=== PATIENT | male | born 1975 | race African-American/Black ===

== ENCOUNTER 2019-06-20 11:41 | Inpatient (IN) | payer OTHER ==
[2019-06-20 13:30] VITALS: BMI 29.7
--- NOTE | 2019-06-20 14:12 | HP ---
CIWA Score Nausea/Vomitin-No Nausea/No Vomiting Muscle Tremors: None Anxiety: 1-Mildly Anxious Agitation: 1-Slight > Activity Paroxysmal Sweats: No Perspiration Orientation: 0-Oriented Tacttile Disturbances: 0-None Auditory Disturbances: 0-None Visual Disturbances: 0-None Headache: 1-Very Mild CIWA-Ar Total Score: 3 - Admission Criteria OASAS Guidelines: Admission for Medically Managed Detox: Requires at least one of the followin. CIWA greater than 12 2. Seizures within the past 24 hours 3. Delirium tremens within the past 24 hours 4. Hallucinations within the past 24 hours 5. Acute intervention needed for co occurring medical disorder 6. Acute intervention needed for co occurring psychiatric disorder 7. Severe withdrawal that cannot be handled at a lower level of care (continued vomiting, continued diarrhea, abnormal vital signs) requiring intravenous medication and/or fluids 8. Admitting History and Physical - Admission Chief Complaint: i need help to come in for rehab from pcp,alcohol,also on pbobation. and fail out patient program History of Present Illness: this 44 years old male attnding outpatient program at [place] for alcohol disorder,pcp abuses and on probation for rehab last treatment 1999 History Source: Patient Limitations to Obtaining History: No Limitations - Past Medical History Cardiovascular: Yes: Hyperlipdemia Psych: Yes: Depression, Other (insomnia) - Past Surgical History Past Surgical History: Yes: Hernia Repair (right inguinal hernia repair in 2018) - Smoking History Smoking history: Current some day smoker Have you smoked in the past 12 months: Yes Aproximately how many cigarettes per day: 20 - Alcohol/Substance Use Hx Alcohol Use: Yes - Social History Usual Living Arrangement: Yes: With Significant Other ADL: Support Services Occupation: unemployed History of Recent Travel: No Admission ROS S - [facility] Chief Complaint: i need help to come in for rehab from alcohol and pcp Allergies/Adverse Reactions: Allergies Allergy/AdvReac Type Severity Reaction Status Date / Time No Known Allergies Allergy Verified 06/20/19 13:12 History of Present Illness: this 44 years old male with alcohol disorder and pcp abused,attending out patient program in [place], but failed, on probation for 2 years,need rehab in the control environment setting, denied seizure but had syncope nicotine dependence 1 pack/day depression insomnia hypercholesterolemia longest sobriety 4 months Exam Limitations: No Limitations - Ebola screening Have you traveled outside of the country in the last 21 days: No Have you had contact with anyone from an Ebola affected area: No Do you have a fever: No - Review of Systems Constitutional: No Symptoms Reported EENT: reports: No Symptoms Reported Respiratory: reports: No Symptoms reported Cardiac: reports: No Symptoms Reported GI: reports: No Symptoms Reported : reports: No Symptoms Reported Musculoskeletal: reports: No Symptoms Reported Integumentary: reports: No Symptoms Reported Neuro: reports: No Symptoms reported Endocrine: reports: No Symptoms Reported Hematology: reports: No Symptoms Reported Psychiatric: reports: No Sypmtoms Reported, Judgement Intact, Mood/Affect Appropiate, Orientated x3, Agitated, Anxious, Depressed, other (insomnia) Patient History - Patient Medical History Hx Anemia: No Hx Asthma: Yes (on albuterol inhaler) Hx Chronic Obstructive Pulmonary Disease (COPD): No Hx Cancer: No Hx Cardiac Disorders: No Hx Congestive Heart Failure: No Hx Hypertension: No Hx Hypercholesterolemia: Yes (on compliance) Hx Pacemaker: No HX Cerebrovascular Accident: No Hx Seizures: No Hx Dementia: No Hx Diabetes: No Hx Gastrointestinal Disorders: No Hx Liver Disease: No Hx Genitourinary Disorders: No Hx Renal Disease (ESRD): No Hx Thyroid Disease: No Hx Human Immunodeficiency Virus (HIV): No Hx Hepatitis C: No Hx Depression: Yes Hx Suicide Attempt: No Hx Bipolar Disorder: No Hx Schizophrenia: No Other Medical History: no suicidal,no homicidal - Patient Surgical History Past Surgical History: No Hx Neurologic Surgery: No Hx Cataract Extraction: No Hx Cardiac Surgery: No Hx Lung Surgery: No Hx Breast Surgery: No Hx Breast Biopsy: No Hx Abdominal Surgery: Yes (right inguinal hernia in 2018) Hx Appendectomy: No Hx Cholecystectomy: No Hx Genitourinary Surgery: No Hx Section: No Hx Orthopedic Surgery: No Hx Hysterectomy: No Anesthesia Reaction: No - PPD History Previous Implant?: Yes Documented Results: Negative w/o proof Implanted On Prior R Admission?: Yes PPD to be Administered?: Yes - Smoking Cessation Smoking history: Current some day smoker Have you smoked in the past 12 months: Yes Aproximately how many cigarettes per day: 20 Hx Chewing Tobacco Use: No Initiated information on smoking cessation: Yes 'Breaking Loose' booklet given: 06/20/19 - Substance & Tx. History Hx Alcohol Use: Yes Hx Substance Use: Yes Substance Use Type: Alcohol Hx Substance Use Treatment: Yes (1999) - Substances abused Alcohol Substance route: Oral Frequency: Daily Amount used: 1 beer 24 ozs Age of first use: 20 Date of last use: 06/19/19 PCP Substance route: Smoking Frequency: 1-3 times last 30 days Amount used: 2 bags Age of first use: 23 Date of last use: 06/17/19 Admission Physical Exam [facility] - Vital Signs Vital Signs: Vital Signs - 24 hr 06/20/19 13:11 Temperature 97.9 F Pulse Rate 67 Respiratory 18 Rate Blood Pressure 121/78 - Physical General Appearance: Yes: Within Normal Limits HEENTM: Yes: Within Normal Limits, Hearing grossly Normal, Normal ENT Inspection , LETY Respiratory: Yes: Lungs Clear, Other (history of asthma) Neck: Yes: Within Normal Limits, Trachea in good position, Thyroid enlarged Breast: Yes: Within Normal Limits Cardiology: Yes: Within Normal Limits, Regular Rhythm, Regular Rate, S1, S2 Abdominal: Yes: Normal Bowel Sounds, Non Tender, Flat, Soft, Surgical Scar Genitourinary: Yes: Within Normal Limits Back: Yes: Within Normal Limits Musculoskeletal: Yes: Within Normal Limits Extremities: Yes: Within Normal Limits 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, Alert, Motor Strength 5/5 Integumentary: Yes: Within Normal Limits Lymphatic: Yes: Within Normal Limits - Diagnostic (1) Alcohol use disorder Current Visit: Yes Status: Acute (2) PCP abuse Current Visit: Yes Status: Acute (3) Hypercholesterolemia Current Visit: Yes Status: Acute (4) Nicotine dependence Current Visit: Yes Status: Acute (5) Depression Current Visit: Yes Status: Acute Cleared for Admission [facility] - Detox or Rehab Claeared for Rehab Admission: Yes Breathalyzer - Breathalyzer Breathalyzer: 0 Urine Drug Screen - Test Device Lot number: [id number] Expiration date: 01/05/21 - Control Is test valid?: Yes - Results Drug screen NEGATIVE: Yes Inpatient Rehab Admission - Rehab Decision to Admit Inpatient rehab admission?: Yes - Initial Determination Are CD services needed?: Yes Free of communicable disease: Yes Not in need of hospitalization: Yes - Rehab Admission Criteria Previous failed treatment: Yes Poor recovery environment: Yes Comorbidities: Yes Lacks judgement: No Patient is meeting Inpatient Rehab admission criteria:: Yes
[2019-06-20] MEDS ORDERED: MENTHOL/PHENOL 1 EACH UD MM PRN (14:34)
[2019-06-20] MEDS ORDERED: hydrOXYzine PAMOATE 50 MG CAPSULE (FP) PO PRN (14:34)
[2019-06-20] MEDS ORDERED: MAGNESIUM HYDROX 2400MG/30ML ORAL SUSPENSION 30 ML CUP PO PRN (14:34)
[2019-06-20] MEDS ORDERED: ACETAMINOPHEN 325 MG TABLET (FP) PO PRN (14:34)
[2019-06-20] MEDS ORDERED: P-EPHED 60MG/TRIPROLIDI 2.5MG TABLET PO PRN (14:34)
[2019-06-20] MEDS ORDERED: guaiFENesin 200 MG/10 ML 10 ML UNIT-DOSE CUPS PO PRN (14:34)
[2019-06-20] MEDS ORDERED: MAGNESIUM CITRATE 300 ML BOTTLE PO PRN (14:34)
[2019-06-20] MEDS ORDERED: LOPERAMIDE HCL 2 MG CAPSULE PO PRN (14:34)
[2019-06-20] MEDS ORDERED: MAG HYDROX/AL HYDROX/SIMETH 30 ML UNIT-DOSE CUP PO PRN (14:34)
[2019-06-20] MEDS ORDERED: IBUPROFEN 400 MG TABLET (FP) PO PRN (14:34)
[2019-06-20] MEDS ORDERED: NICOTINE POLACRILEX 2 MG GUM BUC PRN (14:34)
[2019-06-20] MEDS ORDERED: ALBUTEROL SO4 HFA INHALER IH PRN (14:37)
--- NOTE | 2019-06-20 14:47 | PN ---
[facility] Progress Note Note: [facility] called,spoke with Pharmacist,patient is not on medication
[2019-06-20] MEDS ORDERED: ASPIRIN 81 MG CHEWABLE TABLETS PO ONE (15:21)
--- NOTE | 2019-06-20 15:21 | EKG ---
Test Reason : Blood Pressure : / mmHG Vent. Rate : 058 BPM Atrial Rate : 058 BPM P-R Int : 162 ms QRS Dur : 106 ms QT Int : 440 ms P-R-T Axes : 036 -32 -49 degrees QTc Int : 431 ms SINUS BRADYCARDIA LEFT AXIS DEVIATION ABNORMAL ECG WHEN COMPARED WITH ECG OF 08-SEP-2010 12:13, LIKELY NO SIGNIFICANT CHANGES Confirmed by JOSR ADAMES MD ([id number]) on 06/20/2019 3:20:46 PM Referred By: Confirmed By:JOSR ADAMES MD
[2019-06-20 16:52] LABS: HEMATOCRIT 41.1 % (35.4-49); HEMOGLOBIN 13.2 GM/dL (11.7-16.9); MCH 23.3 pg (25.7-33.7); MCHC 32.1 g/dl (32.0-35.9); MEAN CELL VOLUME 72.7 fl (80-96); MEAN PLT VOLUME 9.7 fl (7.5-11.1); PLATELET COUNT 174 K/MM3 (134-434); RBC 5.65 M/mm3 (4.00-5.60); RDW 15.2 % (11.9-15.9); WHITE BLOOD COUNT 4.9 K/mm3 (4.0-10.0)
[2019-06-20 17:00] LABS: BILIRUBIN,TOTAL 0.4 mg/dL (0.2-1); BLOOD UREA NITROGEN 12.5 mg/dL (7-18); CALCIUM 8.4 mg/dL (8.5-10.1); POTASSIUM 3.8 mmol/L (3.5-5.1); TOT PROT 7.1 g/dl (6.4-8.2)
[2019-06-20] MEDS: MELATONIN 5 MG TABLETS PO PRN (21:32)
[2019-06-20] MEDS: THIAMINE HCL 100 MG TABLET (FP) PO SCH (21:32)
[2019-06-21] MEDS: PRENATAL VITAMINS W/ FOLIC ACID TABLET (FP) PO SCH (10:02)
[2019-06-21] MEDS: ASPIRIN 81 MG CHEWABLE TABLETS PO SCH (10:02)
[2019-06-21 10:18] LABS: PH,URINE 5.5 (5.0-8.0); URINE APPEARANCE CLEAR; URINE BILIRUBIN NEGATIVE (NEGATIVE); URINE COLOR YELLOW; URINE GLUCOSE (UA) NEGATIVE (NEGATIVE); URINE KETONE NEGATIVE (NEGATIVE); URINE LEUK ESTERASE NEGATIVE (NEGATIVE); URINE NITRITE NEGATIVE (NEGATIVE); URINE PROTEIN NEGATIVE (NEGATIVE); URINE UROBILINOGEN 0.2 mg/dL (0.2-1.0)
--- NOTE | 2019-06-21 11:08 | PN ---
[facility] Progress Note Note: Pt was admitted yesterday for alcohol and PCP use. Says he is doing fine today. Here due to program and probation requirements. Would like to stay for 2-3 weeks. PT has no complaints.
[2019-06-21] MEDS ORDERED: FLU VACCINE QUAD 60 MCG/0.5 ML (MDV 19-20) IM ONE (12:00)
[2019-06-21] MEDS: MELATONIN 5 MG TABLETS PO PRN (21:11)
[2019-06-21] MEDS: THIAMINE HCL 100 MG TABLET (FP) PO SCH (21:11)
[2019-06-22] MEDS: PRENATAL VITAMINS W/ FOLIC ACID TABLET (FP) PO SCH (10:10)
[2019-06-22] MEDS: ASPIRIN 81 MG CHEWABLE TABLETS PO SCH (10:10)
[2019-06-22] MEDS: THIAMINE HCL 100 MG TABLET (FP) PO SCH (21:23)
[2019-06-22] MEDS: MELATONIN 5 MG TABLETS PO PRN (21:23)
[2019-06-23] MEDS: PRENATAL VITAMINS W/ FOLIC ACID TABLET (FP) PO SCH (10:12)
[2019-06-23] MEDS: ASPIRIN 81 MG CHEWABLE TABLETS PO SCH (10:12)
[2019-06-23] MEDS: MELATONIN 5 MG TABLETS PO PRN (21:15)
[2019-06-23] MEDS: THIAMINE HCL 100 MG TABLET (FP) PO SCH (21:15)
[2019-06-24] MEDS: ASPIRIN 81 MG CHEWABLE TABLETS PO SCH (09:53)
[2019-06-24] MEDS: PRENATAL VITAMINS W/ FOLIC ACID TABLET (FP) PO SCH (09:53)
[2019-06-24] MEDS: MELATONIN 5 MG TABLETS PO PRN (21:18)
[2019-06-24] MEDS: THIAMINE HCL 100 MG TABLET (FP) PO SCH (21:18)
[2019-06-25] MEDS: PRENATAL VITAMINS W/ FOLIC ACID TABLET (FP) PO SCH (09:55)
[2019-06-25] MEDS: ASPIRIN 81 MG CHEWABLE TABLETS PO SCH (09:56)
[2019-06-25] MEDS: THIAMINE HCL 100 MG TABLET (FP) PO SCH (21:18)
[2019-06-25] MEDS: MELATONIN 5 MG TABLETS PO PRN (21:18)
[2019-06-26] MEDS: ASPIRIN 81 MG CHEWABLE TABLETS PO SCH (10:03)
[2019-06-26] MEDS: PRENATAL VITAMINS W/ FOLIC ACID TABLET (FP) PO SCH (10:03)
--- NOTE | 2019-06-26 10:38 | CONSULT ---
[facility] Psychiatric Consult - Data Date of interview: 06/26/19 Admission source: [facility] Identifying data: Patient is a 44 year old male male, father of five, unemployed, domiciled, and is supported by [facility]. This is one of multiple admissions for patient. Patient admitted to for alcohol and PCP dependence. Substance Abuse History: Smoking Cessation. Smoking history: Current some day smoker. Have you smoked in the past 12 months: Yes. Aproximately how many cigarettes per day: 20. Hx Chewing Tobacco Use: No. Initiated information on smoking cessation: Yes. 'Breaking Loose' booklet given: 06/20/19. - Substance & Tx. History. Hx Alcohol Use: Yes. Hx Substance Use: Yes. Substance Use Type : Alcohol. Hx Substance Use Treatment: Yes (1999). - Substances abused. Alcohol. Substance route: Oral. Frequency: Daily. Amount used: 1 beer 24 ozs. Age of first use: 20. Date of last use: 06/19/19. PCP. Substance route: Smoking. Frequency: 1-3 times last 30 days. Amount used: 2 bags. Age of first use: 23. Date of last use: 06/17/19 Medical History: Asthma, Hypercholesterolemia Psychiatric History: Patient's first psychiatric contact was in 2005 after Mr. Sandy saw a psychiatrist in an outpatient setting due to feeling depressed and having several stressors in his life. No medications were prescribed but psychotherapy was provided. Patient reports history of two psychiatric hospitalizations approximately 7-8 years ago at [facility] after reporting SI and HI towards an acquaintance, and [facility] for suicidal ideation. Patient unable to recall medications prescribed. Unknown diagnosis. States that he is currently provided with outpatient psychiatric care at the [facility] and is prescribed seroquel 100mg. Patient denies history of suicide attempt. He denies history of auditory/visual hallucinations. At present patient reports difficulty sleeping. Physical/Sexual Abuse/Trauma History: denies. Mental Status Exam - Mental Status Exam Alert and Oriented to: Time, Place, Person Cognitive Function: Good Patient Appearance: Well Groomed Mood: Sad Affect: Appropriate Patient Behavior: Appropriate, Cooperative Speech Pattern: Appropriate Voice Loudness: Normal Thought Process: Goal Oriented Thought Disorder: Not Present Hallucinations: Denies Suicidal Ideation: Denies Homicidal Ideation: Denies Insight/Judgement: Poor Sleep: Poorly Appetite: Fair Muscle strength/Tone: Normal Gait/Station: Normal Psychiatric Findings - Problem List ([place] 1, 2,3) (1) Substance induced mood disorder Current Visit: Yes Status: Acute (2) Alcohol use disorder Current Visit: Yes Status: Chronic (3) Nicotine dependence Current Visit: Yes Status: Acute (4) PCP abuse Current Visit: Yes Status: Acute (5) Substance-induced sleep disorder Current Visit: Yes Status: Acute (6) Mood disorder Current Visit: No Status: Suspected - Initial Treatment Plan Initial Treatment Plan: Psychoeducation provided. Rehab in progress. Will order Seroquel 100mg HS. Benefits and side effects discussed. Verbal consent given.
[2019-06-26] MEDS: QUEtiapine FUMARATE 100 MG TABLET (FP) PO SCH (21:37)
[2019-06-26] MEDS: THIAMINE HCL 100 MG TABLET (FP) PO SCH (21:37)
[2019-06-27] MEDS: GABAPENTIN 300 MG CAPSULE PO SCH ×2 (09:42→16:39)
[2019-06-27] MEDS: ASPIRIN 81 MG CHEWABLE TABLETS PO SCH (10:10)
[2019-06-27] MEDS: metoPROLOL SUCCINATE 25 MG TAB.SR.24H (FP) PO SCH (10:10)
[2019-06-27] MEDS: PRENATAL VITAMINS W/ FOLIC ACID TABLET (FP) PO SCH (10:42)
[2019-06-27] MEDS: MELATONIN 5 MG TABLETS PO PRN (21:14)
[2019-06-27] MEDS: QUEtiapine FUMARATE 100 MG TABLET (FP) PO SCH (21:14)
[2019-06-27] MEDS: THIAMINE HCL 100 MG TABLET (FP) PO SCH (21:14)
[2019-06-28] MEDS: GABAPENTIN 300 MG CAPSULE PO SCH ×2 (02:06→09:58)
[2019-06-28] MEDS: PRENATAL VITAMINS W/ FOLIC ACID TABLET (FP) PO SCH (09:58)
[2019-06-28] MEDS: metoPROLOL SUCCINATE 25 MG TAB.SR.24H (FP) PO SCH (09:58)
[2019-06-28] MEDS: ASPIRIN 81 MG CHEWABLE TABLETS PO SCH (09:58)
[2019-06-28] MEDS: MELATONIN 5 MG TABLETS PO PRN (21:26)
[2019-06-28] MEDS: THIAMINE HCL 100 MG TABLET (FP) PO SCH (21:26)
[2019-06-28] MEDS: QUEtiapine FUMARATE 100 MG TABLET (FP) PO SCH (21:26)
[2019-06-29] MEDS: PRENATAL VITAMINS W/ FOLIC ACID TABLET (FP) PO SCH (09:42)
[2019-06-29] MEDS: GABAPENTIN 300 MG CAPSULE PO SCH ×2 (09:42→21:25)
[2019-06-29] MEDS: ASPIRIN 81 MG CHEWABLE TABLETS PO SCH (09:42)
[2019-06-29] MEDS: metoPROLOL SUCCINATE 25 MG TAB.SR.24H (FP) PO SCH (10:31)
[2019-06-29] MEDS: THIAMINE HCL 100 MG TABLET (FP) PO SCH (21:23)
[2019-06-29] MEDS: MELATONIN 5 MG TABLETS PO PRN (21:23)
[2019-06-29] MEDS: QUEtiapine FUMARATE 100 MG TABLET (FP) PO SCH (21:23)
--- NOTE | 2019-06-30 09:12 | PN ---
[facility] Progress Note (SOAP) Subjective: Patient c/o abd pain and diarrhea. States he has been eating a lot of food, beyond fullness, and the diarrhea started today. Was given maalox with minimal effect. Reports frequent watery stool. Hx of gastritis, denies any recent hospitalizations or abx use. Objective: 06/30/19 09:08 Vital Signs Period Temp Pulse Resp BP Sys/Celis Pulse Ox Last 24 Hr 98.9 F 91-101 18-20 115-119/70-89 P/E: General: no apparent distress HEENTM: normocephalic, PERRLA Lungs: clear Heart: s1 s2 ABD: +BS, non-tender, distended. Assessment: Diarrhea 06/30/19 09:09 Plan: Started on Pepto- Bismol and daily Protonix. Discussed dietary habits, eating slower, waiting for sensation of fullness to determine if he needs to eat more food.
[2019-06-30] MEDS: PANTOPRAZOLE 40 MG TABLET PO SCH (10:16)
[2019-06-30] MEDS: GABAPENTIN 300 MG CAPSULE PO SCH ×2 (10:25→21:48)
[2019-06-30] MEDS: metoPROLOL SUCCINATE 25 MG TAB.SR.24H (FP) PO SCH (10:25)
[2019-06-30] MEDS: ASPIRIN 81 MG CHEWABLE TABLETS PO SCH (10:25)
[2019-06-30] MEDS: PRENATAL VITAMINS W/ FOLIC ACID TABLET (FP) PO SCH (10:25)
[2019-06-30] MEDS: BISMUTH SUBSALICYLATE 524 MG/30 ML UD PO PRN ×2 (10:28→21:49)
[2019-06-30] MEDS: THIAMINE HCL 100 MG TABLET (FP) PO SCH (21:48)
[2019-06-30] MEDS: QUEtiapine FUMARATE 100 MG TABLET (FP) PO SCH (21:48)
[2019-06-30] MEDS: MELATONIN 5 MG TABLETS PO PRN (21:49)
[2019-07-01] MEDS: ASPIRIN 81 MG CHEWABLE TABLETS PO SCH (10:11)
[2019-07-01] MEDS: PANTOPRAZOLE 40 MG TABLET PO SCH (10:11)
[2019-07-01] MEDS: BISMUTH SUBSALICYLATE 524 MG/30 ML UD PO PRN ×2 (10:11→21:31)
[2019-07-01] MEDS: GABAPENTIN 300 MG CAPSULE PO SCH ×2 (10:11→21:29)
[2019-07-01] MEDS: PRENATAL VITAMINS W/ FOLIC ACID TABLET (FP) PO SCH (10:11)
[2019-07-01] MEDS: metoPROLOL SUCCINATE 25 MG TAB.SR.24H (FP) PO SCH (10:12)
[2019-07-01] MEDS: THIAMINE HCL 100 MG TABLET (FP) PO SCH (21:29)
[2019-07-01] MEDS: MELATONIN 5 MG TABLETS PO PRN (21:30)
[2019-07-01] MEDS: QUEtiapine FUMARATE 100 MG TABLET (FP) PO SCH (21:30)
[2019-07-02] MEDS: PRENATAL VITAMINS W/ FOLIC ACID TABLET (FP) PO SCH (09:48)
[2019-07-02] MEDS: ASPIRIN 81 MG CHEWABLE TABLETS PO SCH (09:48)
[2019-07-02] MEDS: GABAPENTIN 300 MG CAPSULE PO SCH ×2 (09:48→21:17)
[2019-07-02] MEDS: metoPROLOL SUCCINATE 25 MG TAB.SR.24H (FP) PO SCH (09:48)
[2019-07-02] MEDS: PANTOPRAZOLE 40 MG TABLET PO SCH (09:48)
[2019-07-02] MEDS: BISMUTH SUBSALICYLATE 524 MG/30 ML UD PO PRN (09:50)
[2019-07-02] MEDS: THIAMINE HCL 100 MG TABLET (FP) PO SCH (21:17)
[2019-07-02] MEDS: MELATONIN 5 MG TABLETS PO PRN (21:17)
[2019-07-02] MEDS: QUEtiapine FUMARATE 100 MG TABLET (FP) PO SCH (21:17)
[2019-07-03] MEDS: ASPIRIN 81 MG CHEWABLE TABLETS PO SCH (09:46)
[2019-07-03] MEDS: metoPROLOL SUCCINATE 25 MG TAB.SR.24H (FP) PO SCH (09:46)
[2019-07-03] MEDS: PRENATAL VITAMINS W/ FOLIC ACID TABLET (FP) PO SCH (09:46)
[2019-07-03] MEDS: PANTOPRAZOLE 40 MG TABLET PO SCH (09:46)
[2019-07-03] MEDS: GABAPENTIN 300 MG CAPSULE PO SCH ×2 (09:46→21:25)
[2019-07-03] MEDS: BISMUTH SUBSALICYLATE 524 MG/30 ML UD PO PRN (09:47)
[2019-07-03] MEDS: THIAMINE HCL 100 MG TABLET (FP) PO SCH (21:25)
[2019-07-03] MEDS: MELATONIN 5 MG TABLETS PO PRN (21:25)
[2019-07-03] MEDS: QUEtiapine FUMARATE 100 MG TABLET (FP) PO SCH (21:25)
[2019-07-04] MEDS: GABAPENTIN 300 MG CAPSULE PO SCH ×2 (09:53→21:16)
[2019-07-04] MEDS: PRENATAL VITAMINS W/ FOLIC ACID TABLET (FP) PO SCH (09:53)
[2019-07-04] MEDS: metoPROLOL SUCCINATE 25 MG TAB.SR.24H (FP) PO SCH (09:53)
[2019-07-04] MEDS: PANTOPRAZOLE 40 MG TABLET PO SCH (09:53)
[2019-07-04] MEDS: ASPIRIN 81 MG CHEWABLE TABLETS PO SCH (09:53)
[2019-07-04] MEDS: BISMUTH SUBSALICYLATE 524 MG/30 ML UD PO PRN ×2 (09:54→21:17)
[2019-07-04] MEDS: THIAMINE HCL 100 MG TABLET (FP) PO SCH (21:16)
[2019-07-04] MEDS: QUEtiapine FUMARATE 100 MG TABLET (FP) PO SCH (21:16)
[2019-07-04] MEDS: MELATONIN 5 MG TABLETS PO PRN (21:17)
[2019-07-05] MEDS: GABAPENTIN 300 MG CAPSULE PO SCH ×2 (09:33→21:13)
[2019-07-05] MEDS: ASPIRIN 81 MG CHEWABLE TABLETS PO SCH (09:33)
[2019-07-05] MEDS: PANTOPRAZOLE 40 MG TABLET PO SCH (09:33)
[2019-07-05] MEDS: metoPROLOL SUCCINATE 25 MG TAB.SR.24H (FP) PO SCH (09:33)
[2019-07-05] MEDS: PRENATAL VITAMINS W/ FOLIC ACID TABLET (FP) PO SCH (09:34)
--- NOTE | 2019-07-05 09:45 | PN ---
[facility] Progress Note (SOAP) Subjective: Patient c/o left sided pain that does not radiate to the back, arm or neck. Also reports feeling congested when he breathes. Reports that he has been told by his PCP that he has "clogged arteries," but he did not report this on admission. He states that he had the same feeling yesterday and it was relieved after taking his morning medications (ASA, protonix) Was previously seen for abdominal discomfort related to overeating, and treated with protonix, which relieved the symptoms. He reports now that he had 3 bowls of cereal and that he is lying down right after his evening meal. He also reports that he has been doing push-ups; previously sedentary. EKG upon admission indicated bradycardia and no significant changes from previous EKG. Objective: BP- 127/81, RR-18, Pulse-78 @ time of complaint. Pulse Oxygen-98% 07/05/19 09:45 Vital Signs Period Temp Pulse Resp BP Sys/Celis Pulse Ox Last 24 Hr 97.9 F 73 18-18 102/66 P/E: General: no apparent distress Lungs: clear, respirations easy and unlabored Heart: s1, s2 audible, regular ABD: +BS Neuro: CN 2-12 intact. 07/05/19 09:51 Assessment: unspecified chest pain 07/05/19 09:48 Plan: EKG ordered-shows left axis deviation (unchanged from previous EKG) NSR, ST wave abnormalities that may indicate ischemia (consistent with "clogged arteries "). AM meds given Instructed to stop push-ups, sit up after eating, and reduce food intake. Continue to monitor.
--- NOTE | 2019-07-05 15:14 | EKG ---
Test Reason : Blood Pressure : / mmHG Vent. Rate : 077 BPM Atrial Rate : 077 BPM P-R Int : 166 ms QRS Dur : 104 ms QT Int : 384 ms P-R-T Axes : 053 -33 -44 degrees QTc Int : 434 ms NORMAL SINUS RHYTHM LEFT AXIS DEVIATION ABNORMAL ECG WHEN COMPARED WITH ECG OF 20-JUN-2019 14:56, T WAVE INVERSION NO LONGER EVIDENT IN ANTERIOR LEADS Confirmed by Bigg Pulido MD ([id number]) on 07/05/2019 3:14:16 PM Referred By: Confirmed By:Bigg Pulido MD
[2019-07-05] MEDS: THIAMINE HCL 100 MG TABLET (FP) PO SCH (21:13)
[2019-07-05] MEDS: QUEtiapine FUMARATE 100 MG TABLET (FP) PO SCH (21:13)
[2019-07-05] MEDS: MELATONIN 5 MG TABLETS PO PRN (21:13)
[2019-07-06] MEDS: ASPIRIN 81 MG CHEWABLE TABLETS PO SCH (10:08)
[2019-07-06] MEDS: metoPROLOL SUCCINATE 25 MG TAB.SR.24H (FP) PO SCH (10:08)
[2019-07-06] MEDS: GABAPENTIN 300 MG CAPSULE PO SCH ×2 (10:08→21:28)
[2019-07-06] MEDS: PANTOPRAZOLE 40 MG TABLET PO SCH (10:08)
[2019-07-06] MEDS: PRENATAL VITAMINS W/ FOLIC ACID TABLET (FP) PO SCH (10:08)
--- NOTE | 2019-07-06 11:26 | PN ---
[facility] Progress Note Note: Patient is scheduled for discharge tomorrow. Script for 30 days supply of Seroquel 100 mg/hs will be electronically transmitted to [facility] at [address] [place] [address]
--- NOTE | 2019-07-06 15:15 | DS ---
[facility] Rehab Discharge Summary - [facility] Rehab Discharge Summary Admission Date: 06/20/19 Discharge Date: 07/06/19 - History Present History: PCP dependence Pertinent Past History: this 44 years old male with alcohol disorder and pcp abused,attending out patient program in [place], but failed, on probation for 2 years,need rehab in the control environment setting, denied seizure but had syncope nicotine dependence 1 pack/day depression insomnia hypercholesterolemia longest sobriety 4 months - Discharge Physical Exam Vital Signs: Vital Signs Temperature 97.5 F L 07/06/19 07:52 Pulse Rate 75 07/06/19 09:30 Respiratory Rate 18 07/06/19 09:30 Blood Pressure 120/67 07/06/19 09:30 O2 Sat by Pulse Oximetry (%) Pertinent Admission Physical Exam Findings: Physical General Appearance: No apparent distress HEENTM: LETY Respiratory: Lungs Clear Neck: Trachea in good position, Thyroid enlarged Cardiology: S1, S2 Abdominal: +Bowel Sounds, Non Tender, Flat, Soft, Surgical Scar Musculoskeletal: Full weight bearing, full ROM, steady gait 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 Patient will return to [facility] for aftercare) Hospital Course: Patient attended groups, had 1:1 with his counselor, was seen by the psychiatric service. He was treated for diarrhea and substernal pain while in rehab. - Medication Discharge Medications: Ambulatory Orders Fluticasone/Salmeterol [Advair Hfa 115-21 Mcg Inhaler] 1 inh PO PRN PRN Aspirin [ASA -] 81 mg PO DAILY 06/20/19 Gabapentin [Neurontin -] 300 mg PO Q8H 06/25/19 Metoprolol Succinate [Toprol Xl] 25 mg PO DAILY 06/25/19 Quetiapine Fumarate [Seroquel -] 100 mg PO HS #30 tablet 07/06/19 - Medication-Assisted Treatment (MAT) Medication-Assisted Treatment (MAT): No - Discharge Instructions Diet, activity, other medical instructions: Diet: as tolerated Activity: as tolerated Other medical instructions: Please follow up with aftercare referral. - Diagnosis (1) PCP abuse Current Visit: Yes Status: Chronic (2) Alcohol use disorder Current Visit: Yes Status: Chronic - Follow-up Referral Minutes to complete discharge: 20 - AMA Did Patient Leave Against Medical Advice: No Additional Comments: Patient did not need medications prescribed and transmitted to his pharmacy. stated he had adequate supply in his belongings.
[2019-07-06] MEDS: MELATONIN 5 MG TABLETS PO PRN (21:28)
[2019-07-06] MEDS: THIAMINE HCL 100 MG TABLET (FP) PO SCH (21:28)
[2019-07-06] MEDS: QUEtiapine FUMARATE 100 MG TABLET (FP) PO SCH (21:28)
[2019-07-07 06:52] VITALS: BP 103/70; PULSE 64; TEMP 98.1
[2019-07-07] MEDS: PRENATAL VITAMINS W/ FOLIC ACID TABLET (FP) PO SCH (09:08)
[2019-07-07] MEDS: GABAPENTIN 300 MG CAPSULE PO SCH (09:08)
[2019-07-07] MEDS: PANTOPRAZOLE 40 MG TABLET PO SCH (09:08)
[2019-07-07] MEDS: metoPROLOL SUCCINATE 25 MG TAB.SR.24H (FP) PO SCH (09:08)
[2019-07-07] MEDS: ASPIRIN 81 MG CHEWABLE TABLETS PO SCH (09:08)
== END 2019-07-07 09:08 | disposition home or self-care (01) | DRG 772 ==
LOC: YASAS 11:41 → Y3W 14:44
PROVIDERS: ADMIT Neuromusculoskeletal Medicine & OMM; ATTEND Neuromusculoskeletal Medicine & OMM
PROC: HZ42ZZZ Group Counseling for Substance Abuse Treatment, Cognitive-Behavioral (ICD-10-PCS; principal; 2019-06-20)
DX: F10.20 Alcohol dependence, uncomplicated (principal); F16.10 Hallucinogen abuse, uncomplicated; F17.210 Nicotine dependence, cigarettes, uncomplicated; F19.24 Other psychoactive substance dependence with psychoactive substance-induced mood disorder; F19.282 Other psychoactive substance dependence with psychoactive substance-induced sleep disorder; F39 Unspecified mood [affective] disorder; F32.9 Major depressive disorder, single episode, unspecified; R07.89 Other chest pain; R19.7 Diarrhea, unspecified; J45.909 Unspecified asthma, uncomplicated; E78.5 Hyperlipidemia, unspecified; G47.00 Insomnia, unspecified
CPT/HCPCS: 36415; 80053; 80061; 81003; 83721; 85027; 86593; 93005; 93010; G0008; Q2036